=== PATIENT | female | born 1965 | race African-American/Black ===

== ENCOUNTER 2016-10-12 07:20 | Inpatient (IN) ==
--- NOTE | 2016-10-11 21:50 | Discharge Summary ---
<Delmis Ríos - Last Filed: 10/11/16 21:48> Date of Encounter: 10/11/16 - Discharge Diagnosis (1) Loosening of knee joint prosthesis Priority: Primary Status: Acute Qualifiers: Encounter type: initial encounter Qualified Code(s): T84.038A - Mechanical loosening of other internal prosthetic joint, initial encounter; Z96.659 - Presence of unspecified artificial knee joint (2) HTN (hypertension) Priority: Secondary Status: Chronic Qualifiers: Hypertension type: essential hypertension Qualified Code(s): I10 - Essential (primary) hypertension (3) Apnea Priority: Secondary Status: Chronic (4) DMII (diabetes mellitus, type 2) Priority: Secondary Status: Chronic Qualifiers: Diabetes mellitus complication status: with unspecified complications Diabetes mellitus director long term care insulin use: unspecified director long term care insulin use status Qualified Code(s): E11.8 - Type 2 diabetes mellitus with unspecified complications (5) Obesity Priority: Secondary Status: Chronic Qualifiers: Obesity type: unspecified obesity type Obesity severity: unspecified obesity severity Qualified Code(s): E66.9 - Obesity, unspecified - Discharge Medications Home Medications: Cholecalciferol (Vitamin D3) [Vitamin D3] 1,000 unit PO DAILY 03/07/16 [History] Duloxetine HCl [Cymbalta] 60 mg PO DAILY 03/07/16 [History] Esomeprazole Magnesium [Nexium] 40 mg PO BID 03/07/16 [History] Insulin ASPART [Novolog Flexpen] 15 unit SQ TID PRN 03/07/16 [History] Insulin Glargine,Hum.rec.anlog [Lantus Solostar] 80 unit SQ BID 03/07/16 [ History] Loratadine [Claritin] 10 mg PO DAILY #30 tablet 03/07/16 [Rx] Simvastatin [Zocor] 40 mg PO HS 03/07/16 [History] Valsartan [Diovan] 160 mg PO DAILY 03/07/16 [History] Ibuprofen [Motrin] 600 mg PO Q8HR PRN #30 tab 09/16/16 [Rx] Albuterol Sulfate [Proair Hfa] 2 puff IH Q4H PRN 09/17/16 [History] Hyoscyamine SL [Levsin Sl] 0.125 mg SL BID 09/17/16 [History] Aspirin Enteric Coated [Aspirin EC] 325 mg PO DAILY #21 tablet. 10/11/16 [Rx] OxyCODONE Immed Rel [Roxicodone 5 MG] 5 - 10 mg PO Q6HR PRN #40 tablet 10/11/16 [Rx] Allergies/Adverse Reactions: Allergies exenatide [From Byetta] Allergy (Verified 09/17/16 08:04) Itching latex Allergy (Verified 09/17/16 08:04) Hives metformin [From Glucophage] Allergy (Verified 09/17/16 08:04) Itching Sulfa (Sulfonamide Antibiotics) Allergy (Verified 09/17/16 08:04) Hives Primary care physician: Brianne Kruger CNP - Patient Status Disposition: Home, Self-Care Condition: Good - Discharge Instructions Follow Up With: Brianne Kruger CNP [Primary Care Provider] - - Hospital Course Hospital course: Ms. House is a 51 year old female - Time Spent with Patient Total time spent providing and/or coordinating discharge services: <Marcos Barber - Last Filed: 10/14/16 08:09> Date of Encounter: 10/14/16 Time of Encounter: 08:09 - Discharge Diagnosis (1) Loosening of knee joint prosthesis Priority: Primary Status: Acute Qualifiers: Encounter type: subsequent encounter Qualified Code(s): T84.038D - Mechanical loosening of other internal prosthetic joint, subsequent encounter; Z96.659 - Presence of unspecified artificial knee joint (2) HTN (hypertension) Priority: Secondary Status: Chronic Qualifiers: Hypertension type: essential hypertension Qualified Code(s): I10 - Essential (primary) hypertension (3) Apnea Priority: Secondary Status: Chronic (4) DMII (diabetes mellitus, type 2) Priority: Secondary Status: Chronic Qualifiers: Diabetes mellitus complication status: with unspecified complications Diabetes mellitus half-way insulin use: unspecified half-way insulin use status Qualified Code(s): E11.8 - Type 2 diabetes mellitus with unspecified complications (5) Obesity Priority: Secondary Status: Chronic Qualifiers: Obesity type: unspecified obesity type Obesity severity: unspecified obesity severity Qualified Code(s): E66.9 - Obesity, unspecified (6) Acute blood loss anemia Status: Acute Primary care physician: Brianne Kruger CNP - Patient Status Functional capacity at discharge: uses cane/walker Overall status at discharge: patient is progressing back to baseline - Hospital Course Hospital course: Ms. House is a 51 year old female - Time Spent with Patient Total time spent providing and/or coordinating discharge services:
[2016-10-12] MEDS ORDERED: CeFAZolin Pre 2,000 MG/100 ML 2,000 MG/100 ML BAG IVPB ONE (07:43)
[2016-10-12] MEDS ORDERED: Lidocaine -MPF 1% 2 ML VIAL ID ONE (07:43)
[2016-10-12] MEDS ORDERED: Ringers Solution, Lactated 1,000 ML IVC SCH (07:45)
[2016-10-12] MEDS ORDERED: Albuterol 2.5 MG/3 ML NEBULIZER IH ONE (07:48)
--- NOTE | 2016-10-12 07:51 | History & Physical Report ---
Date of Encounter: 10/12/16 Time of Encounter: 07:51 24 Hour HP Update - Instructions Instructions: If the History and Physical is less than 30 days old and was completed prior to A.M. admission and or procedure and has NOT been updated on calendar day of procedure please complete this update prior to performing procedure. - Update Patient reports changes in Medical Condition: No Changes in examination, assessment, or condition: No Changes in Medication: No Preop tests/diagnostics Reviewed: Yes Surgery Remains Indicated: Yes Consent for Planned Operative Procedure(s) Verified: Yes - Pre-Operative Checklist Preoperative Checklist Indicated: No Prophylactic Antibiotic Ordered: Yes Is VTE Prophylaxis Indicated?: Yes
[2016-10-12] MEDS ORDERED: Famotidine 20 MG/2 ML VIAL IVP ONE (08:21)
[2016-10-12] MEDS ORDERED: Gabapentin 300 MG CAPSULE PO ONE (08:21)
[2016-10-12] MEDS ORDERED: *HR* FentaNYL (PF) 100 MCG/2 ML VIAL ONE (08:34)
[2016-10-12] MEDS ORDERED: Ondansetron 4 MG/2 ML VIAL ONE (08:34)
[2016-10-12] MEDS ORDERED: *HR* Propofol 200 MG/20 ML VIAL IVP ONE (08:34)
[2016-10-12] MEDS ORDERED: *HR* Midazolam HCl 2 MG/2 ML VIAL ONE (08:34)
[2016-10-12] MEDS ORDERED: Lidocaine -MPF 2% 2 ML VIAL ONE (08:34)
[2016-10-12] MEDS ORDERED: Dexamethasone 4 MG/ML VIAL ONE (08:34)
--- NOTE | 2016-10-12 08:35 | Anesthesia Evaluation PreOp ---
Date of Encounter: 10/12/16 Time of Encounter: 08:30 - Past History Planned Operation: Rt Total Knee Revision Cardiac History: HTN Pulmonary History: Asthma, JEANNE Dx (non compliant CPAP) EXPERT WITNESS History: Other (Cervical Radiculopathy) Other Medical History: Diabetes Type II (Accu check 158), GERD, Other Anesthesia History: No Prior Anesthetic Complications : No Alcohol Use: none Drug use: none Medications and Allergies Cholecalciferol (Vitamin D3) [Vitamin D3] 1,000 unit PO DAILY 03/07/16 [History] Duloxetine HCl [Cymbalta] 60 mg PO DAILY 03/07/16 [History] Esomeprazole Magnesium [Nexium] 40 mg PO BID 03/07/16 [History] Insulin ASPART [Novolog Flexpen] 15 unit SQ TID PRN 03/07/16 [History] Insulin Glargine,Hum.rec.anlog [Lantus Solostar] 80 unit SQ BID 03/07/16 [ History] Loratadine [Claritin] 10 mg PO DAILY #30 tablet 03/07/16 [Rx] Simvastatin [Zocor] 40 mg PO HS 03/07/16 [History] Valsartan [Diovan] 160 mg PO DAILY 03/07/16 [History] Ibuprofen [Motrin] 600 mg PO Q8HR PRN #30 tab 09/16/16 [Rx] Albuterol Sulfate [Proair Hfa] 2 puff IH Q4H PRN 09/17/16 [History] Hyoscyamine SL [Levsin Sl] 0.125 mg SL BID 09/17/16 [History] Aspirin Enteric Coated [Aspirin EC] 325 mg PO DAILY #21 tablet. 10/11/16 [Rx] OxyCODONE Immed Rel [Roxicodone 5 MG] 5 - 10 mg PO Q6HR PRN #40 tablet 10/11/16 [Rx] Allergies exenatide [From Byetta] Allergy (Verified 09/17/16 08:04) Itching latex Allergy (Verified 09/17/16 08:04) Hives metformin [From Glucophage] Allergy (Verified 09/17/16 08:04) Itching Sulfa (Sulfonamide Antibiotics) Allergy (Verified 09/17/16 08:04) Hives - Meds/Allergy Pre-op Review Medications Reviewed: Yes Allergies Reviewed: Yes Beta Blockers on Current Med List: No Anesthesia Results - Labs Laboratory Tests 10/01/16 10/01/16 15:56 15:56 Hgb 12.3 Hct 36.6 Plt Count 235 Sodium 138 Potassium 4.4 BUN 13 Creatinine 0.88 - Imaging EKG: report reviewed (SR short MN) Additional studies: ECHO 2015 EF 65% Anesthesia Exam O2 Sat Height 1.57 m Height 1.57 m Height 1.57 m Weight 92.987 kg Weight 92.987 kg Weight 92.987 kg O2 Sat by Pulse Oximetry 100 O2 Sat by Pulse Oximetry 100 Vital Signs Temp Pulse Resp BP Pulse Ox 98.4 F 86 18 123/73 100 10/12/16 07:54 10/12/16 07:54 10/12/16 07:54 10/12/16 07:54 10/12/16 07:54 Height: 5'2 Weight: 205 lbs NPO (# of Hours): MN Pain Scale: 0 - HEENT Pupil (Motor): Pupils equal, EOMI Mallampati: II Teeth: Normal Oral Opening: Greater than 3 - EXPERT WITNESS LOC: Oriented EXPERT WITNESS Motor: Normal RUE, Normal LUE, Normal RLE, Normal LLE, Normal Face EXPERT WITNESS Sensory: Normal: RUE, LUE, RLE, LLE, Face - Cardiac Rhythm: Regular Murmur: None JVD: No Carotid Bruit: No - Pulmonary Breath Sounds: bilateral Clear Respiratory Effort: Symmetrical Anesthesia Assess/Plan ASA Score: 3 (Obese HTN DM) Modified [place] Scale for Level of Consciousness: Cooperative, oriented, and tranquil Anesthetic Plan: General, Regional Monitoring Plan: Standard Monitors Recovery Plan: PACU (Discussed GA and RA, agrees to proceed)
[2016-10-12] MEDS ORDERED: Tetracaine/PF 20 MG/2 ML AMPUL ONE (08:49)
[2016-10-12] MEDS ORDERED: Bupivacaine/Clonidine Syringe 1 EACH SYRINGE ONE (08:50)
[2016-10-12] MEDS ORDERED: Ondansetron 4 MG/2 ML VIAL IVP PRN ×2 (09:23→12:13)
[2016-10-12] MEDS ORDERED: Naloxone 0.4 MG/ML INJ IVP PRN ×2 (09:23→12:13)
[2016-10-12] MEDS ORDERED: *HR* Meperidine 25 MG/ML SYRINGE IVP PRN (09:23)
--- NOTE | 2016-10-12 09:28 | Anesthesia Procedures ---
Date of Encounter: 10/12/16 Time of Encounter: 09:15 Procedures: Anesthesia - Nerve Block Procedure Date: 10/12/16 Time: 09:15 Allergies/Adv Reactions: Allergies Allergy/AdvReac Type Severity Reaction Status Date / Time exenatide [From Byetta] Allergy Itching Verified 09/17/16 08:04 latex Allergy Hives Verified 09/17/16 08:04 metformin [From Glucophage] Allergy Itching Verified 09/17/16 08:04 Sulfa (Sulfonamide Allergy Hives Verified 09/17/16 08:04 Antibiotics) Pre-op Diagnosis: Right Aseptic tibial loosening Surgical Procedure: Right Total Knee Revision Checklist: Correct Patient Identifier, Correct procedure, History checked Correct side: Right Blood Thinner: No Monitor Applied: EKG, BP, Pulse Oximetry Supplemental Oxygen via Nasal Cannula (L/min): 2 Sedation: Versed (mg): 2 Sedation: Fentanyl (mcg): 100 Indication: Post Op Analgesia Pre-op Neuro Deficits: No Block Type: Femoral, Other (Ipack) Catheter placed: No Sterile Technique: Yes Ultrasound used: Yes Anatomy identified: Yes Visual spread of Local: Yes Neuro Stimulation: Yes (Femoral) Nerve Stimulator Range: 0.2 - 0.4 mA Blood on Needle Aspiration: No Smooth Injection of Local: Yes Pain with Injection of Local: No Prep: Chlorhexadine Needle: 22 x 50 mm Stimuplex (Femoral), 21 x 100 mm Stimuplex (Ipack) Local: 0.25% Bupivicaine w/Clonidine 20 mcg/cc (Ipack 20mL), Ropivacaine (0.5% 30mL Femoral) Volume (cc): 50 Number of Attempts: 1 Complications: None/effective block Vitals: VSS throughout. See nursing documentation. Comments: Verbal order Dr Barbre for post op pain management. Patient tolerated well.
--- NOTE | 2016-10-12 10:23 | Orthopedic Operative Note ---
Date of procedure: 10/12/16 Pre-op diagnosis: Aseptic loosening right tibial component Post-op diagnosis: same Procedure: Procedure: Right revision tibial component Estimated blood loss: 200 cc Hardware: Metal and polyethylene replacement Arthrex tibia size 4, 12 x 100 stem, 18 PS Yamilka, 5 mm medial augment Exam Under anesthesia: Full flexion full extension well-healed incision no swelling or erythema no varus valgus instability Procedural Notes: Loosening of tibial component with subsidence Operative procedure: The patient was brought to the operating room and placed on the operating room table. After general anesthesia was administered the operative knee was examined. Findings were noted in the exam under anesthesia. The operative extremity was prepped and draped in sterile surgical fashion. The patient received IV antibiotics prior to skin incision. A standard midline incision was made centered over the patella. The incision was made through the skin and subcutaneous tissue through the old incision. A medial parapatellar tendon approach was performed. Care was taken to preserve tissue along the medial aspect of the patella. And to protect the patella tendon. The deep MCL was released off the medial tibia. The infra patella fat pad was excised. Cultures were obtained as well as Gram stain. 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 An extensive synovectomy was performed. The knee was brought into flexion the tibial poly-was removed. The femur was well fixed. Attention was then turned to the tibial component. The tibial component was loose with subsidence and removed with an osteotome without any bone loss. Tibia was recut just below the level of the cement mantle. The tibia was prepared first sized to a 4 reamed to a 12 x 100 stem. The finishing punch was seated. Trial had good fit and fixation with a medial 5 mm augment. Trial reduction revealed full extension and full flexion no varus valgus instability with an 18 PS Yamilka. Trial components removed knee sat for 2 minutes with a Betadine saline solution. It was irrigated out with pulse irrigation. Components were assembled on the back table. The tibia cemented. The 18 PS Yamilka was seated and secure. The had full flexion and full extension and excellent patella tracking no varus valgus instability. After the cement hardened the knee was irrigated out again. The knee was taken through a range of motion had excellent patella tracking. The extensor mechanism was closed with a running #2 Fiberwire suture and a running #2 PDS suture. The deep tissue was irrigated and closed deep with #1 PDS suture superficially with 0 PDS suture. The skin was closed with skin osmel. The patient was placed in a sterile dressing and postoperative brace. They were extubated and transferred to recovery room in stable condition. Anesthesia: QASIM Surgeon: Marcos Barber [employer]airy Processing Equipment Operator: Delmis Ríos Condition: stable Disposition: PACU
[2016-10-12] MEDS ORDERED: *HR* HYDROmorphone 2 MG/ML SYRINGE ONE (10:49)
[2016-10-12] MEDS: *HR* HYDROmorphone (PF) 1 MG/ML SYRINGE IVP PRN ×6 (11:04→21:06)
[2016-10-12 11:52] LABS: Hematocrit 33.8 % (35.3-44.9); Hemoglobin 11.1 g/dL (11.5-15.4)
[2016-10-12] MEDS ORDERED: *HR* OxyCODONE Immed Rel 5 MG TABLET PO PRN (12:13)
[2016-10-12] MEDS ORDERED: MOM Conc 10 ML UD.LIQ PO PRN (12:13)
[2016-10-12] MEDS ORDERED: Temazepam 15 MG CAPSULE PO PRN (12:13)
[2016-10-12] MEDS ORDERED: NON-FORMULARY MEDICATION 1 EACH EACH (Insulin Aspart [Novolog Flexpen] 15 UNIT) SQ PRN (12:13)
[2016-10-12] MEDS ORDERED: Sennosides 8.6 MG TABLET PO PRN (12:13)
[2016-10-12] MEDS ORDERED: Dextrose Gel 15 GM PO PRN ×2 (12:13)
[2016-10-12] MEDS ORDERED: *HR* Dextrose 50 % in Water (Syg) 50 ML SYRINGE IVP PRN (12:13)
[2016-10-12] MEDS ORDERED: D5% in Water 1,000 ML IVC PRN (12:13)
[2016-10-12] MEDS: Hyoscyamine SL 0.125 MG TAB.SUBL SL SCH ×2 (12:54→21:06)
[2016-10-12] MEDS: Cholecalciferol (D-3) 1,000 UNIT TABLET PO SCH (12:54)
[2016-10-12] MEDS: Valsartan 160 MG TABLET PO SCH (12:54)
[2016-10-12] MEDS: Loratadine 10 MG TABLET PO SCH (12:54)
[2016-10-12] MEDS: Insulin LISPRO 300 UNITS/3 ML VIAL SQ SCH ×3 (12:57→21:22)
[2016-10-12] MEDS: Ringers Solution, Lactated 1,000 ML IVC SCH ×2 (13:57→23:20)
--- NOTE | 2016-10-12 14:17 | Anesthesia Evaluation Post Op ---
Date of Encounter: 10/12/16 Time of Encounter: 12:00 - Vital Signs Vital Signs: Vital Signs/O2 Sat/Glucose, Most Recent Temp Pulse Resp BP Pulse Ox 97.2 F L 87 16 132/80 100 10/12/16 11:42 10/12/16 11:42 10/12/16 11:42 10/12/16 11:42 10/12/16 11:42 Blood Glucose* 226 - Lungs Lungs: Clear Ascult./Percussion - Airway Airway: Non-obstructed - Cardiovascular Regular Rate - Mental Status Mental Status: Alert & Oriented, Answers Appropriately - Pain Pain Scale: 2 (appears to be resting comfortably) Pain Scale used: Numeric (1 - 10) - Nausea Vomiting Nausea Vomiting: Not Present - Hydration Hydration: NPO - Discharge PostOp Status: Transfer Patient to floor
[2016-10-12] MEDS: *HR* Enoxaparin 30 MG/0.3 ML SYRINGE SQ SCH (17:20)
[2016-10-12] MEDS: ceFAZolin 2,000 MG in D5% in Water 100 ML IVPB SCH ×2 (17:21→23:22)
[2016-10-12] MEDS ORDERED: *HR* Enoxaparin 30 MG/0.3 ML SYRINGE SQ SCH (18:00)
[2016-10-12] MEDS: Insulin DETEMIR 100 UNIT/ML X5UNITS SQ SCH (21:21)
[2016-10-13] MEDS: *HR* HYDROmorphone (PF) 1 MG/ML SYRINGE IVP PRN ×3 (02:19→15:26)
[2016-10-13] MEDS: *HR* OxyCODONE Immed Rel 5 MG TABLET PO PRN ×4 (04:41→21:52)
[2016-10-13] MEDS: *HR* Enoxaparin 30 MG/0.3 ML SYRINGE SQ SCH ×2 (04:53→17:34)
[2016-10-13 06:33] LABS: Hematocrit 28.8 % (35.3-44.9); Hemoglobin 9.6 g/dL (11.5-15.4)
[2016-10-13 06:49] LABS: BUN/Creatinine Ratio 15 (6-26); Blood Urea Nitrogen 13 mg/dL (7-20); Calcium 8.8 mg/dL (8.6-10.8); Carbon Dioxide 26 mEq/L (19-29); Chloride 99 mEq/L (98-109); Glucose 305 mg/dL (70-99); Osmolality,Calculated 294 (280-300); Potassium 4.1 mEq/L (3.5-4.5); Sodium 136 mEq/L (136-145); eGFR For African Americans > 60 (> 60); eGFR For Non-African Americans > 60 (> 60)
--- NOTE | 2016-10-13 06:49 | Orthopedics Progress Note ---
Date of Encounter: 10/13/16 Time of Encounter: 06:49 - Assessment and Plan (1) Loosening of knee joint prosthesis Current Visit: Yes Status: Acute Qualifiers: Encounter type: subsequent encounter Qualified Code(s): T84.038D - Mechanical loosening of other internal prosthetic joint, subsequent encounter; Z96.659 - Presence of unspecified artificial knee joint (2) HTN (hypertension) Current Visit: Yes Status: Chronic Qualifiers: Hypertension type: essential hypertension Qualified Code(s): I10 - Essential (primary) hypertension (3) Apnea Current Visit: Yes Status: Chronic (4) DMII (diabetes mellitus, type 2) Current Visit: Yes Status: Chronic Qualifiers: Diabetes mellitus complication status: with unspecified complications Diabetes mellitus detention insulin use: unspecified detention insulin use status Qualified Code(s): E11.8 - Type 2 diabetes mellitus with unspecified complications (5) Obesity Current Visit: Yes Status: Chronic Qualifiers: Obesity type: unspecified obesity type Obesity severity: unspecified obesity severity Qualified Code(s): E66.9 - Obesity, unspecified (6) Acute blood loss anemia Current Visit: Yes Status: Acute Subjective Interval history: Patient was seen this morning doing well without complaints. Afebrile vital signs stable. Operative extremity: Neurovascularly intact Dressing clean dry and intact Calves nontender Assessment and plan: Continue with postoperative care Hemoglobin 9.6 Objective Vital signs: Vital Signs Temp Pulse Resp BP Pulse Ox 10/13/16 04:44 99.2 F 96 16 115/68 96 10/12/16 23:33 98.9 F 90 16 114/68 96 10/12/16 19:33 97.6 F 84 16 119/71 100 10/12/16 15:40 87 16 132/80 100 10/12/16 15:10 84 119/77 97 10/12/16 14:10 85 122/87 96 10/12/16 13:10 86 130/85 94 10/12/16 12:40 90 123/83 99 10/12/16 12:10 85 115/72 99 10/12/16 11:42 97.2 F L 87 16 132/80 100 10/12/16 11:32 88 16 110/62 100 10/12/16 11:22 98.0 F 83 18 123/81 100 10/12/16 11:12 92 18 124/73 98 10/12/16 11:02 90 20 130/86 100 10/12/16 10:52 97.8 F 88 16 120/77 98 10/12/16 09:10 86 16 133/86 99 10/12/16 08:10 98.4 F 86 18 123/73 100 10/12/16 07:54 98.4 F 86 18 123/73 100 Intake and Output 10/12/16 10/12/16 10/13/16 15:59 23:59 07:59 Intake Total 500 / 500 Output Total 700 / 700 200 / 200 250 / 250 Balance -700 / -700 300 / 300 -250 / -250 Intake: IV Fluids 100 / 100 Ancef 2,000 MG In 100 / 100 Dextrose 5% 100 ML @ 200 mls/hr IVPB Q8H SHANTEL Rx#: [id number] Oral 400 / 400 Output: Urine 500 / 500 200 / 200 250 / 250 Estimated Blood Loss 200 / 200 Other: # Voids 1 Weight 92.987 kg Blood Glucose* 226 271 - Labs CBC & BMP: 10/13/16 06:16 Labs: Abnormal lab results Hgb 9.6 g/dL (11.5-15.4) L D 10/13/16 06:16 Hct 28.8 % (35.3-44.9) L 10/13/16 06:16 POC Glucose 271 (58-89) H 10/12/16 21:05 - VTE Documentation of Mechanical Device: Intermittent pneumatic compression device Consult Discharge Plan - Plan Referrals: Slick,Brianne Najera, INVESTIGATOR FRAUD [Primary Care Provider] -
[2016-10-13] MEDS: Loratadine 10 MG TABLET PO SCH (07:47)
[2016-10-13] MEDS: Cholecalciferol (D-3) 1,000 UNIT TABLET PO SCH (07:48)
[2016-10-13] MEDS: Hyoscyamine SL 0.125 MG TAB.SUBL SL SCH ×2 (07:48→21:38)
[2016-10-13] MEDS: Valsartan 160 MG TABLET PO SCH (07:48)
[2016-10-13] MEDS: Insulin LISPRO 300 UNITS/3 ML VIAL SQ SCH ×4 (07:53→21:39)
[2016-10-13] MEDS: Insulin DETEMIR 100 UNIT/ML X5UNITS SQ SCH ×2 (10:05→21:48)
[2016-10-13] MEDS: Ringers Solution, Lactated 1,000 ML IVC SCH (13:02)
[2016-10-14] MEDS: *HR* Enoxaparin 30 MG/0.3 ML SYRINGE SQ SCH (05:16)
[2016-10-14] MEDS: *HR* OxyCODONE Immed Rel 5 MG TABLET PO PRN ×3 (05:17→12:08)
[2016-10-14 06:29] LABS: Hematocrit 27.3 % (35.3-44.9); Hemoglobin 9.1 g/dL (11.5-15.4)
[2016-10-14 06:43] LABS: BUN/Creatinine Ratio 17 (6-26); Blood Urea Nitrogen 13 mg/dL (7-20); Calcium 8.9 mg/dL (8.6-10.8); Carbon Dioxide 28 mEq/L (19-29); Chloride 101 mEq/L (98-109); Glucose 151 mg/dL (70-99); Osmolality,Calculated 289 (280-300); Potassium 3.6 mEq/L (3.5-4.5); Sodium 138 mEq/L (136-145); eGFR For African Americans > 60 (> 60); eGFR For Non-African Americans > 60 (> 60)
[2016-10-14] MEDS: Insulin LISPRO 300 UNITS/3 ML VIAL SQ SCH ×2 (07:34→12:08)
[2016-10-14] MEDS: Loratadine 10 MG TABLET PO SCH (07:35)
[2016-10-14] MEDS: Valsartan 160 MG TABLET PO SCH (07:35)
[2016-10-14] MEDS: Cholecalciferol (D-3) 1,000 UNIT TABLET PO SCH (07:35)
[2016-10-14] MEDS: Hyoscyamine SL 0.125 MG TAB.SUBL SL SCH (07:35)
--- NOTE | 2016-10-14 08:09 | Orthopedics Progress Note ---
Date of Encounter: 10/14/16 Time of Encounter: 08:08 - Assessment and Plan (1) Loosening of knee joint prosthesis Current Visit: Yes Status: Acute Qualifiers: Encounter type: subsequent encounter Qualified Code(s): T84.038D - Mechanical loosening of other internal prosthetic joint, subsequent encounter; Z96.659 - Presence of unspecified artificial knee joint (2) HTN (hypertension) Current Visit: Yes Status: Chronic Qualifiers: Hypertension type: essential hypertension Qualified Code(s): I10 - Essential (primary) hypertension (3) Apnea Current Visit: Yes Status: Chronic (4) DMII (diabetes mellitus, type 2) Current Visit: Yes Status: Chronic Qualifiers: Diabetes mellitus complication status: with unspecified complications Diabetes mellitus care home insulin use: unspecified care home insulin use status Qualified Code(s): E11.8 - Type 2 diabetes mellitus with unspecified complications (5) Obesity Current Visit: Yes Status: Chronic Qualifiers: Obesity type: unspecified obesity type Obesity severity: unspecified obesity severity Qualified Code(s): E66.9 - Obesity, unspecified (6) Acute blood loss anemia Current Visit: Yes Status: Acute Subjective Interval history: Patient was seen this morning doing well without complaints. Afebrile vital signs stable. Operative extremity: Neurovascularly intact Dressing clean dry and intact Calves nontender Assessment and plan: Continue with postoperative care Hemoglobin 9.1 discharge today Objective Vital signs: Vital Signs Temp Pulse Resp BP Pulse Ox 10/14/16 06:24 98.2 F 96 18 97/59 94 10/14/16 05:25 101/62 10/13/16 23:08 98.6 F 92 18 97/57 94 10/13/16 17:38 98.8 F 101 18 102/64 97 10/13/16 14:42 99.5 F 119 20 127/63 93 10/13/16 10:33 99.2 F 86 18 104/67 100 Intake and Output 10/13/16 10/14/16 10/14/16 23:59 07:59 15:59 Intake Total 940 / 940 175 / 175 Balance 940 / 940 175 / 175 Intake: Oral 940 / 940 175 / 175 Other: # Voids 1 Blood Glucose* 177 152 - Labs CBC & BMP: 10/14/16 06:03 10/14/16 06:03 Labs: Abnormal lab results Hgb 9.1 g/dL (11.5-15.4) L 10/14/16 06:03 Hct 27.3 % (35.3-44.9) L 10/14/16 06:03 Glucose 151 mg/dL (70-99) H 10/14/16 06:03 POC Glucose 271 (58-89) H 10/12/16 21:05 - VTE Documentation of Mechanical Device: Intermittent pneumatic compression device Consult Discharge Plan - Plan Referrals: Brianne Kruger TECHNICAL TRAINING COORDINATOR [Primary Care Provider] -
[2016-10-14] MEDS: Insulin DETEMIR 100 UNIT/ML X5UNITS SQ SCH (09:44)
[2016-10-14 10:59] VITALS: BP 117/89
== END 2016-10-14 13:15 | disposition home or self-care (01) | DRG 467 ==
LOC: SAMDAY 07:20 → 3NENU 12:09
PROVIDERS: ADMIT Orthopaedic Surgery; ATTEND Orthopaedic Surgery